=== PATIENT | female | born 1975 | race Caucasian/White ===

== ENCOUNTER 2019-02-02 08:22 | Emergency (ER) | payer OTHER ==
[~2019-02-02] VITALS: Ht 162.6 cm; Wt 75.7 kg
--- NOTE | 2019-02-02 08:57 | PHYS DOC ---
Past History Past Medical History: Other Additional Past Medical Histor: melanoma Past Surgical History: Hysterectomy, Other Additional Past Surgical Histo: melanoma resection right upper extremity Smoking: Non-smoker Alcohol Use: None Drug Use: None Adult General Chief Complaint Chief Complaint: ABDOMINAL PAIN HPI HPI Patient is a 43-year-old female presents complaining of right upper quadrant abdominal pain. This is been waxing and waning for the past 6 months. She actually had an ultrasound performed at [facility] yesterday for this discomfort. Last night she had colunga with supper and pain became much worse since approximately 3 this morning. She has taken no home medicines to help with the discomfort which normally resolves on its own. She has not been prescribed any medicines for possible gallbladder disease. She denies any trauma. No significant nausea or vomiting. No diarrhea. Nothing else seems to make the discomfort better or worse. No recent travel. Pain is moderate to severe in intensity.[] Review of Systems Review of Systems Constitutional: Denies fever or chills [] Eyes: Denies change in visual acuity, redness, or eye pain [] HENT: Denies nasal congestion or sore throat [] Respiratory: Denies cough or shortness of breath [] Cardiovascular: No chest pain or palpitations[] GI: See history of present illness[] : Denies dysuria or hematuria [] Musculoskeletal: Denies back pain or joint pain [] Integument: Denies rash or skin lesions [] Neurologic: Denies headache, focal weakness or sensory changes [] Endocrine: Denies polyuria or polydipsia [] All other systems were reviewed and found to be within normal limits, except as documented in this note. Current Medications Current Medications Current Medications Medications (Trade) Dose Ordered Sig/Trent Start Time Stop Time Status Last Admin Dose Admin Hyoscyamine (Anaspaz) 0.125 mg 1X ONCE 02/02/19 09:00 02/02/19 09:01 UNV Ketorolac Tromethamine (Toradol 30mg Vial) 30 mg 1X ONCE 02/02/19 09:00 02/02/19 09:01 UNV Prochlorperazine Edisylate (Compazine) 5 mg 1X ONCE 02/02/19 09:00 02/02/19 09:01 UNV Sodium Chloride 1,000 ml @ 1,000 mls/hr Q1H 02/02/19 08:50 02/02/19 09:49 UNV Allergies Allergies Allergies Coded Allergies Type Severity Reaction Last Updated Verified Latex, Natural Rubber Adverse Reaction Severe rash 02/02/19 Yes Physical Exam Physical Exam Constitutional: Well developed, well nourished, no acute distress, non-toxic appearance. [] HENT: Normocephalic, atraumatic, bilateral external ears normal, oropharynx moist, no oral exudates, nose normal. [] Eyes: PERRLA, EOMI, conjunctiva normal, no discharge. [] Neck: Normal range of motion, no tenderness, supple, no stridor. [] Cardiovascular:Heart rate regular rhythm, no murmur [] Lungs & Thorax: Bilateral breath sounds clear to auscultation [] Abdomen: Bowel sounds normal, soft, right upper quadrant tenderness, mild inspiratory arrest at Arevalo's point, no McBurney's point tenderness, no rebound, no guarding, no rigidity, no masses, no pulsatile masses. [] Skin: Warm, dry, no erythema, no rash. [] Back: No tenderness, no CVA tenderness. [] Extremities: No tenderness, no cyanosis, no clubbing, ROM intact, no edema. [] Neurologic: Alert and oriented X 3, normal motor function, normal sensory f unction, no focal deficits noted. [] Psychologic: Affect normal, judgement normal, mood normal. [] Current Patient Data Vital Signs Vital Signs Date Time Temp Pulse Resp B/P (MAP) Pulse Ox O2 Delivery O2 Flow Rate FiO2 02/02/19 08:33 97.8 79 19 98 Room Air EKG EKG [] Radiology/Procedures Radiology/Procedures Examination: ABDOMEN LTD History: RUQ pain Comparison/Correlation: None Findings: Right upper quadrant ultrasound exams were performed. Gallbladder is normal with no cholelithiasis or findings of cholecystitis. No biliary dilatation. Common bile that measures 0.4 cm diameter. Hepatic echotexture is normal. Proximal pancreas is normal. Distal pancreas is obscured by bowel gas. Right kidney measures 11.8 cm x 5.5 cm x 4.4 cm. No right hydronephrosis. Right renal cortical echotexture is unremarkable. No findings of right renal calculus. No right upper quadrant ascites. Inferior vena cava is normal. Impression: Normal RUQ ultrasound exam.[] Course & Med Decision Making Course & Med Decision Making Pertinent Labs and Imaging studies reviewed. (See chart for details) ED course: Patient arrived, was placed in bed, and tolerated exam well. IV access was established, she was given fluids, antiemetics, pain medicines, and antispasmodics. She was transferred to and from [facility] without any complications. After the ultrasound she reported feeling much better and having no pain. After the return of the ultrasound and laboratory findings, these were discussed with the patient who voiced understanding. Expressed concern to the patient because her ultrasound from [place] which will be discussed later showed the possibility of a polyp versus gallbladder carcinoma and that she needs close follow-up. She reports that she has a PET scan for her malignant melanoma follow-up within the next 2 weeks. All questions were answered. She was discharged in improved condition. Medical decision making: Patient with right upper quadrant pain, this may be gallbladder disease however there is no evidence of an acute process such as choledoclithiasis/cholecystitis/cholangitis at this time. As noted above discussed ultrasound findings from [facility] that were performed on February 01, 2019 that showed visualized pancreas being unremarkable. Liver is normal in echogenicity. No focal hepatic masses are identified. Right hepatic lobe demonstrates small cyst measuring 1.1 cm. Right hepatic lobe measures 15 point centimeters in length. Gallbladder is almost completely contracted. Within the gallbladder, there is a 1.1 cm echogenic structure without convincing shadowing. Doppler interrogation demonstrates internal vascularity. Common bile duct measures normally at 4 mm in diameter. Right kidney measures 11 cm in length. There is no evidence of stone or hydronephrosis. Visualized aorta and IVC demonstrates normal caliber. Impression: 1. Gallbladder mass measuring 1.1 similar with internal vascularity. Possibilities are gallbladder polyp versus gallbladder carcinoma. Given size, surgical consultation for cholecystectomy is recommended. This was discussed with the patient who voiced understanding. She is also being given follow-up with the surgical clinic at [facility]. There is no evidence of intractable pain. No evidence of intractable nausea or vomiting.[] Dragon Disclaimer Dragon Disclaimer This electronic medical record was generated, in whole or in part, using a voice recognition dictation system. Departure Departure: Impression: Primary Impression: Right upper quadrant pain Disposition: HOME, SELF-CARE Condition: IMPROVED Referrals: PIYUSH ANAND MD (PCP) Follow-up in 2 days VERONA UREÑA MD This is a surgeon at [facility] area did please call today or tomorrow to arrange follow-up appointment given the ultrasound findings at [facility]. Patient Instructions: Abdominal Pain Additional Instructions: Follow-up with your regular doctor in 2 days. Point of contact for surgery at [facility] has also been attached based on the results of the ultrasound performed at [facility]. Information on a low-fat diet for the gallbladder has been provided from [email or web address]. Return to the ER if worsening pain or any other concerns. Scripts Meloxicam (MELOXICAM) 7.5 Mg Tablet 7.5 MG PO DAILY for PAIN, #20 TAB Prov: SHADY ACOSTA DO 02/02/19 Hyoscyamine Sulfate (LEVSIN) 0.125 Mg Tablet 0.125 MG PO QID for abdominal pain/cramping, #30 TAB Prov: SHADY ACOSTA DO 02/02/19 SHADY ACOSTA DO Feb 02, 2019 08:57
[2019-02-02] MEDS ORDERED: KETOROLAC 30 MG/ML VIAL. IV ONE (09:00)
[2019-02-02] MEDS ORDERED: PROCHLORPERAZINE 10 MG/2 ML VIAL. IV ONE (09:00)
[2019-02-02] MEDS ORDERED: HYOSCYAMINE 0.125 MG TAB.RAPDIS PO ONE (09:00)
[2019-02-02] MEDS ORDERED: IV NORMAL SALINE 1,000ML 1,000 ML IV SCH (09:00)
[2019-02-02 09:04] LABS: BASO % 1 % (0-3); EOS # 0.1 x10^3/uL (0.0-0.7); EOS % 1 % (0-3); HEMOGLOBIN 15.2 g/dL (12.0-15.5); LYMPH # 1.6 x10^3/uL (1.0-4.8); LYMPH % 27 % (24-48); MEAN CORPUSCULAR HEMOGLOBIN 32 pg (25-35); MEAN CORPUSCULAR HGB CONC 35 g/dL (31-37); MEAN CORPUSCULAR VOLUME 93 fL (79-100); MONO # 0.3 x10^3/uL (0.0-1.1); MONO % 4 % (0-9); NEUT % 67 % (31-73); PLATELET COUNT 291 x10^3/uL (140-400); RED BLOOD COUNT 4.73 x10^6/uL (3.50-5.40); RED CELL DISTRIBUTION WIDTH 12.1 % (11.5-14.5)
[2019-02-02 09:16] LABS: ALBUMIN 3.6 g/dL (3.4-5.0); ALBUMIN/GLOBULIN RATIO 1.1 (1.0-1.7); ALK PHOS 123 U/L (46-116); ALT (SGPT) 8 U/L (14-59); ANION GAP 11 (6-14); AST (SGOT) < 5 U/L (15-37); BLOOD UREA NITROGEN 13 mg/dL (7-20); BUN/CREATININE RATIO 16 (6-20); CALCIUM 9.5 mg/dL (8.5-10.1); CARBON DIOXIDE 25 mmol/L (21-32); CHLORIDE 106 mmol/L (98-107); CREATININE 0.8 mg/dL (0.6-1.0); GFR 78.3; GLUCOSE 115 mg/dL (70-99); LIPASE 100 U/L (73-393); SODIUM 142 mmol/L (136-145); TOTAL BILIRUBIN 0.2 mg/dL (0.2-1.0); TOTAL PROTEIN 6.9 g/dL (6.4-8.2)
--- NOTE | 2019-02-02 10:01 | RAD ---
Examination: ABDOMEN LTD History: RUQ pain Comparison/Correlation: None Findings: Right upper quadrant ultrasound exams were performed. Gallbladder is normal with no cholelithiasis or findings of cholecystitis. No biliary dilatation. Common bile that measures 0.4 cm diameter. Hepatic echotexture is normal. Proximal pancreas is normal. Distal pancreas is obscured by bowel gas. Right kidney measures 11.8 cm x 5.5 cm x 4.4 cm. No right hydronephrosis. Right renal cortical echotexture is unremarkable. No findings of right renal calculus. No right upper quadrant ascites. Inferior vena cava is normal. Impression: Normal RUQ ultrasound exam. Electronically signed by: Matt Barrett MD (02/02/2019 9:58 AM) [id number]
[2019-02-02] MEDS ORDERED: MELO7.5T29 PO (10:22)
[2019-02-02] MEDS ORDERED: HYOS0.1264 PO (10:22)
[2019-02-02 10:25] VITALS: BP 115/79
[2019-02-02 10:25] LABS: BACTERIA,URINE 0 /HPF (0-FEW); BILIRUBIN,URINE NEG (NEG); CLARITY,URINE HAZY; COLOR,URINE YELLOW; GLUCOSE,URINE NEG (NEG); NITRITE,URINE NEG (NEG); RBC,URINE RARE /HPF (0-2); UROBILINOGEN,URINE 0.2 mg/dL (0.2 mg/dL); WBC,URINE OCC /HPF (0-4)
[2019-02-02 10:26] LABS: SQUAMOUS EPITHELIAL CELL,UR FEW /LPF
== END 2019-02-02 10:31 | disposition home or self-care (01) ==
LOC: ER 08:22
DX: R10.11 Right upper quadrant pain (principal); Z90.710 Acquired absence of both cervix and uterus; Z91.040 Latex allergy status
CPT/HCPCS: 36415; 76705; 80053; 81001; 83690; 85025; 96374; 96375; 99285; J0780; J1885; J7030